=== PATIENT | female | born 1965 | race American Indian/Alaskan Native ===

== ENCOUNTER 2017-09-29 21:10 | Emergency (ER) | payer SELFPAY ==
[2017-09-29] MEDS ORDERED: DUONEB *Not for PRN Use IH ONE (23:04)
--- NOTE | 2017-09-29 23:42 | XRay Report ---
FINAL REPORT PROCEDURE: XR CHEST 1V AP TECHNIQUE: A portable AP chest radiograph was obtained at 09/30/2017 03:15 ([facility]) . CPT 22016 HISTORY: Chest pain. COMPARISON: No prior studies are available for comparison. FINDINGS: Heart: Mild cardiomegaly. Mediastinum/Vessels: Mild aortic tortuosity. Lungs/Pleural space: Mild perihilar indistinctness. Bibasilar opacities. Low lung volumes. Bony thorax: Mild degenerative changes of the spine and shoulders. Life support devices: None. IMPRESSION: Mild cardiomegaly. Mild aortic tortuosity. Perihilar indistinctness with bibasilar opacities. Low lung volumes. Findings likely related to bronchovascular crowding/atelectasis, also consider subtle congestive heart failure or pneumonitis.
[2017-09-30 00:21] LABS: Basophils % (Auto) 0.6 % (0.0-1.8); Eosinophils % (Auto) 0.8 % (0.0-4.3); Lymphocytes # (Auto) 1.5 K/mm3 (1.2-5.4); Lymphocytes % (Auto) 47.8 % (13.4-35.0); Mean Corpuscular HGB Conc 33 % (30-34); Mean Corpuscular Hemoglobin 33 pg (28-32); Mean Corpuscular Volume 98 fl (79-97); Monocytes # (Auto) 0.3 K/mm3 (0.0-0.8); Monocytes % (Auto) 9.9 % (0.0-7.3); Red Blood Count 3.96 M/mm3 (3.65-5.03); Red Cell Distribution Width 14.5 % (13.2-15.2)
--- NOTE | 2017-09-30 00:34 | Emergency Department Report ---
ED Chest Pain HPI - General Chief Complaint: Chest Pain Stated Complaint: CHEST PAIN Time Seen by Provider: 09/29/17 22:12 Source: patient, EMS Mode of arrival: Stretcher Limitations: No Limitations - History of Present Illness Initial Comments: Patient says that she was drinking beer earlier today when she developed substernal chest pain that started radiating to her left arm. It is intermittent. Exertional. Has been having wheezing lately. Endorses a Nonproductive cough as well. Denies illicit drug use. No family history of ACS. Said that she drinks 6 beers today. - Related Data Previous Rx's Medication Instructions Recorded Last Taken Type cloNIDine [Catapres] 0.1 mg PO BID #60 tablet 09/28/14 04/16/15 Rx Famotidine [Pepcid] 20 mg PO BID #30 tablet 04/16/15 Unknown Rx Permethrin 5% [Acticin 5% CREAM] 1 applicatio TP ONCE #1 tube 04/16/15 Unknown Rx hydrOXYzine HCL [Atarax] 50 mg PO Q6HR PRN #20 tablet 04/16/15 Unknown Rx Colloidal Oatmeal [Eucerin Eczema 226 gm TP BID #1 cream..g. 05/17/15 Unknown Rx Relief] Diphenhydramine HCl [Benadryl 25 mg PO TID #60 tablet 05/17/15 Unknown Rx Allergy TAB] Prednisone [predniSONE 10 mg 10 mg PO .TAPER #1 tab.ds.pk 05/17/15 Unknown Rx (6-Day Pack, 21 Tabs)] Albuterol Sulfate [Proair 90 mcg IH Q4HR PRN #1 aer.pow.ba 09/30/17 Unknown Rx Respiclick] Azithromycin 250 mg PO DAILY #4 tablet 09/30/17 Unknown Rx predniSONE [Deltasone] 50 mg PO QDAY #4 tab 09/30/17 Unknown Rx Allergies Allergy/AdvReac Type Severity Reaction Status Date / Time Penicillins Allergy Itching Verified 05/17/15 14:12 Heart Score - HEART Score History: Moderately suspicious EKG: Normal Age: 45-65 Risk factors: > 3 risk factors or hx of atherosclerotic disease Troponin: < normal limit HEART Score: 4 ED Review of Systems ROS: Stated complaint: CHEST PAIN Other details as noted in HPI Constitutional: denies: chills, fever Eyes: denies: eye pain, eye discharge, vision change ENT: denies: ear pain, throat pain Respiratory: shortness of breath, SOB with exertion, wheezing. denies: cough Cardiovascular: chest pain. denies: palpitations Endocrine: no symptoms reported Gastrointestinal: denies: abdominal pain, nausea, diarrhea Genitourinary: denies: urgency, dysuria, discharge Musculoskeletal: denies: back pain, joint swelling, arthralgia Skin: denies: rash, lesions Neurological: denies: headache, weakness, paresthesias Psychiatric: denies: anxiety, depression Hematological/Lymphatic: denies: easy bleeding, easy bruising ED Past Medical Hx - Past Medical History Hx Hypertension: Yes (non-compliant with meds) Hx Heart Attack/AMI: No Hx Congestive Heart Failure: No Hx Diabetes: No Hx Arthritis: Yes Hx Psychiatric Treatment: Yes (anxiety, bipolar) Hx Asthma: No Hx COPD: Yes Hx HIV: No - Surgical History Hx Coronary Stent: No Additional Surgical History: 3 c-sections - Social History Smoking Status: Smoker, Current Status Unknown Substance Use Type: Alcohol - Medications Home Medications: Home Medications Medication Instructions Recorded Confirmed Last Taken Type cloNIDine [Catapres] 0.1 mg PO BID #60 tablet 09/28/14 04/16/15 04/16/15 Rx Famotidine [Pepcid] 20 mg PO BID #30 tablet 04/16/15 Unknown Rx Permethrin 5% [Acticin 5% CREAM] 1 applicatio TP ONCE #1 tube 04/16/15 Unknown Rx hydrOXYzine HCL [Atarax] 50 mg PO Q6HR PRN #20 tablet 04/16/15 Unknown Rx Colloidal Oatmeal [Eucerin Eczema 226 gm TP BID #1 cream..g. 05/17/15 Unknown Rx Relief] Diphenhydramine HCl [Benadryl 25 mg PO TID #60 tablet 05/17/15 Unknown Rx Allergy TAB] Prednisone [predniSONE 10 mg 10 mg PO .TAPER #1 tab.ds.pk 05/17/15 Unknown Rx (6-Day Pack, 21 Tabs)] Albuterol Sulfate [Proair 90 mcg IH Q4HR PRN #1 aer.pow.ba 09/30/17 Unknown Rx Respiclick] Azithromycin 250 mg PO DAILY #4 tablet 09/30/17 Unknown Rx predniSONE [Deltasone] 50 mg PO QDAY #4 tab 09/30/17 Unknown Rx ED Physical Exam - General Limitations: No Limitations General appearance: alert, in no apparent distress, other (intoxicated) - Head Head exam: Present: atraumatic, normocephalic - Eye Eye exam: Present: normal appearance - ENT ENT exam: Present: mucous membranes moist - Neck Neck exam: Present: normal inspection - Respiratory Respiratory exam: Present: wheezes, rhonchi, prolonged expiratory. Absent: respiratory distress - Cardiovascular Cardiovascular Exam: Present: regular rate, normal rhythm, JVD. Absent: systolic murmur, diastolic murmur, rubs, gallop - GI/Abdominal GI/Abdominal exam: Present: soft, normal bowel sounds - Extremities Exam Extremities exam: Present: normal inspection, pedal edema - Back Exam Back exam: Present: normal inspection - Neurological Exam Neurological exam: Present: alert, oriented X3 - Psychiatric Psychiatric exam: Present: normal affect, normal mood - Skin Skin exam: Present: warm, dry, intact, normal color. Absent: rash ED Course Vital Signs 09/29/17 09/29/17 09/30/17 21:42 23:20 01:10 Temperature 97.8 F Pulse Rate 82 82 70 Pulse Rate [ Anterior Throughout] Respiratory 18 20 Rate Respiratory Rate [Anterior Throughout] Blood Pressure 103/50 Blood Pressure 109/59 111/66 [Right] O2 Sat by Pulse 96 95 96 Oximetry 09/30/17 09/30/17 01:22 01:39 Temperature Pulse Rate Pulse Rate [ 70 90 Anterior Throughout] Respiratory Rate Respiratory 20 22 Rate [Anterior Throughout] Blood Pressure Blood Pressure [Right] O2 Sat by Pulse Oximetry LISA score - Lisa Score Age > 65: (0) No Aspirin use within the Past 7 Days: (0) No 3 or more CAD Risk Factors: (0) No 2 or more Angina events in past 24 hrs: (0) No Known CAD with more than 50% Stenosis: (0) No Elevated Cardiac Markers: (0) No ST Deviation Greater than 0.5mm: (0) No LISA Score: 0 ED Medical Decision Making - Lab Data Result diagrams: 09/29/17 23:51 09/29/17 23:51 - EKG Data -: EKG Interpreted by Ok EKG shows normal: sinus rhythm, axis, intervals, QRS complexes, ST-T waves Rate: normal - EKG Data Interpretation: no acute changes - Radiology Data Radiology results: report reviewed, image reviewed - Medical Decision Making 52-year-old female with past medical history of COPD, hypertension and presents with chest pain. Patient's symptoms improved before she arrived in the ER. Vitals are stable. Bilateral wheezing and rhonchi heard on presentation. This improved after breathing treatments. Chest x-ray shows concern for possible bibasilar opacities versus interstitial edema. Patient's BNP is negative. No history of CHF. Likely could be an early forming infection. Patient will be started on prednisone and azithromycin. Troponin is negative 1. EKG is nonischemic. Low suspicion for ACS. Patient passed her walk of life. She'll be discharged home with instructions to follow-up with the [facility] for further management and evaluation. - Differential Diagnosis acs, chf vs copd exacerbation, pna, ptx, pe, sepsis Critical care attestation.: If time is entered above; I have spent that time in minutes in the direct care of this critically ill patient, excluding procedure time. ED Disposition Clinical Impression: COPD exacerbation Disposition: DC-01 TO HOME OR SELFCARE Is pt being admited?: No Condition: Stable Instructions: Chronic Obstructive Pulmonary Disease (ED) Prescriptions: Albuterol Sulfate [Proair Respiclick] 90 mcg IH Q4HR PRN #1 aer.pow.ba PRN Reason: Dyspnea Azithromycin 250 mg PO DAILY #4 tablet predniSONE [Deltasone] 50 mg PO QDAY #4 tab Referrals: PRIMARY CARE, [Primary Care Provider] - 3-5 Days
[2017-09-30 00:51] LABS: BUN/Creatinine Ratio 9; Blood Urea Nitrogen 6 mg/dL (7-17); Calcium 8.7 mg/dL (8.4-10.2); Hemolysis Index 6
[2017-09-30 00:59] LABS: Platelet Count 63 K/mm3 (140-440)
[2017-09-30 01:10] VITALS: BP 111/66
[2017-09-30] MEDS ORDERED: PROVENTIL IH ONE ×2 (01:15→01:20)
[2017-09-30] MEDS ORDERED: DUONEB *Not for PRN Use IH ONE (01:15)
[2017-09-30] MEDS ORDERED: ZITHROMAX PO ONE (01:24)
[2017-09-30] MEDS ORDERED: DELTASONE PO ONE (01:24)
== END 2017-09-30 02:10 | disposition home or self-care (01) ==
LOC: ED 21:10
DX: J44.1 Chronic obstructive pulmonary disease with (acute) exacerbation (principal); I10 Essential (primary) hypertension; M19.90 Unspecified osteoarthritis, unspecified site; J44.9 Chronic obstructive pulmonary disease, unspecified; Z88.0 Allergy status to penicillin
CPT/HCPCS: 36415; 71045; 80048; 83880; 84484; 85025; 93005; 93010; 94640; 99285; J7512

== ENCOUNTER 2018-11-03 09:29 | Emergency (ER) | payer MEDICAID ==
[2018-11-03] MEDS ORDERED: NORCO 5/325 PO ONE (09:50)
--- NOTE | 2018-11-03 09:53 | Emergency Department Report ---
ED Extremity Problem HPI - General Chief complaint: Extremity Injury, Lower Stated complaint: LEFT LEG SWOLLEN Time Seen by Provider: 11/03/18 09:43 Source: patient, EMS Mode of arrival: Wheelchair Limitations: No Limitations - History of Present Illness Initial comments: 53-year-old female with a past medical history of arthritis, COPD, hypertension, anxiety, and bipolar disorder presents to the hospital for left leg pain and swelling the past 3 days. Patient denies any fall or injury. Patient complains of a constant burning pain that is at the left foot and distal medial left leg. Pain is constant, worse with palpation and ambulation, no alleviating factors, and rated 10/10 in intensity. Patient complains of chronic intermittent shortness of breath due to COPD. No chest pain or fever reported. Patient denies recent long-distance travel or history of PE/DVT. PMD: none - Related Data Previous Rx's Medication Instructions Recorded Last Taken Type cloNIDine [Catapres] 0.1 mg PO BID #60 tablet 09/28/14 04/16/15 Rx Famotidine [Pepcid] 20 mg PO BID #30 tablet 04/16/15 Unknown Rx Permethrin 5% [Acticin 5% CREAM] 1 applicatio TP ONCE #1 tube 04/16/15 Unknown Rx hydrOXYzine HCL [Atarax] 50 mg PO Q6HR PRN #20 tablet 04/16/15 Unknown Rx Colloidal Oatmeal [Eucerin Eczema 226 gm TP BID #1 cream..g. 05/17/15 Unknown Rx Relief] Diphenhydramine HCl [Benadryl 25 mg PO TID #60 tablet 05/17/15 Unknown Rx Allergy TAB] Prednisone [predniSONE 10 mg 10 mg PO .TAPER #1 tab.ds.pk 05/17/15 Unknown Rx (6-Day Pack, 21 Tabs)] Albuterol Sulfate [Proair 90 mcg IH Q4HR PRN #1 aer.pow.ba 09/30/17 Unknown Rx Respiclick] Azithromycin 250 mg PO DAILY #4 tablet 09/30/17 Unknown Rx predniSONE [Deltasone] 50 mg PO QDAY #4 tab 09/30/17 Unknown Rx HYDROcodone/APAP 5-325 [[place] 1 each PO Q4HR PRN #20 tablet 11/03/18 Unknown Rx 5/325] Sulfamethoxazole/Trimethoprim 1 each PO BID #20 tablet 11/03/18 Unknown Rx [Bactrim DS TAB] Allergies Allergy/AdvReac Type Severity Reaction Status Date / Time Penicillins Allergy Itching Verified 05/17/15 14:12 ED Review of Systems ROS: Stated complaint: LEFT LEG SWOLLEN Other details as noted in HPI Comment: All other systems reviewed and negative ED Past Medical Hx - Past Medical History Previous Medical History?: Yes Hx Hypertension: Yes (non-compliant with meds) Hx Heart Attack/AMI: No Hx Congestive Heart Failure: No Hx Diabetes: No Hx Arthritis: Yes Hx Psychiatric Treatment: Yes (anxiety, bipolar) Hx Asthma: No Hx COPD: Yes Hx HIV: No - Surgical History Past Surgical History?: Yes Hx Coronary Stent: No Additional Surgical History: 3 c-sections - Social History Smoking Status: Never Smoker Substance Use Type: None - Medications Home Medications: Home Medications Medication Instructions Recorded Confirmed Last Taken Type cloNIDine [Catapres] 0.1 mg PO BID #60 tablet 09/28/14 04/16/15 04/16/15 Rx Famotidine [Pepcid] 20 mg PO BID #30 tablet 04/16/15 Unknown Rx Permethrin 5% [Acticin 5% CREAM] 1 applicatio TP ONCE #1 tube 04/16/15 Unknown Rx hydrOXYzine HCL [Atarax] 50 mg PO Q6HR PRN #20 tablet 04/16/15 Unknown Rx Colloidal Oatmeal [Eucerin Eczema 226 gm TP BID #1 cream..g. 05/17/15 Unknown Rx Relief] Diphenhydramine HCl [Benadryl 25 mg PO TID #60 tablet 05/17/15 Unknown Rx Allergy TAB] Prednisone [predniSONE 10 mg 10 mg PO .TAPER #1 tab.ds.pk 05/17/15 Unknown Rx (6-Day Pack, 21 Tabs)] Albuterol Sulfate [Proair 90 mcg IH Q4HR PRN #1 aer.pow.ba 09/30/17 Unknown Rx Respiclick] Azithromycin 250 mg PO DAILY #4 tablet 09/30/17 Unknown Rx predniSONE [Deltasone] 50 mg PO QDAY #4 tab 09/30/17 Unknown Rx HYDROcodone/APAP 5-325 [[place] 1 each PO Q4HR PRN #20 tablet 11/03/18 Unknown Rx 5/325] Sulfamethoxazole/Trimethoprim 1 each PO BID #20 tablet 11/03/18 Unknown Rx [Bactrim DS TAB] ED Physical Exam - General Limitations: No Limitations - Other Other exam information: General: No limitations, patient is alert in no acute distress Head exam: Atraumatic, normocephalic Eyes exam: Normal appearance ENT: Moist mucous membrane, normal oropharynx Neck exam: Normal inspection, full range of motion, no meningismus nontender Respiratory exam: Clear to auscultation bilateral, no wheezes, rales, crackles Cardiovascular: Normal rate and rhythm, normal heart sounds Abdomen: Soft, nondistended, and nontender, with normal bowel sounds, no rebound, or guarding Extremity: Full range of motion, left lower leg greater in size than the right with tenderness, medial left ankle warm and tenderness. No erythema. 2+ DP pulses bilaterally Back: Normal Inspection, full range of motion, no tenderness Neurologic: Alert, oriented x3, cranial nerves intact, no motor or sensory deficit Psychiatric: normal affect, normal mood Skin: Warm, dry, intact ED Course Vital Signs 11/03/18 11/03/18 09:30 10:21 Temperature 98.3 F Pulse Rate 91 H Respiratory 16 18 Rate Blood Pressure 128/74 O2 Sat by Pulse 98 Oximetry ED Medical Decision Making - Lab Data Result diagrams: 11/03/18 09:53 11/03/18 11:29 Lab Results 11/03/18 11/03/18 11/03/18 Range/Units 09:53 09:53 09:53 WBC 11.9 H (4.5-11.0) K/mm3 RBC 3.86 (3.65-5.03) M/mm3 Hgb 11.3 (10.1-14.3) gm/dl Hct 34.4 (30.3-42.9) % MCV 89 (79-97) fl MCH 29 (28-32) pg MCHC 33 (30-34) % RDW 17.4 H (13.2-15.2) % Plt Count 119 L (140-440) K/mm3 Lymph # Curb Setter Add Manual Diff Complete Total Counted 100 Seg Neuts % (Manual) 85.0 H (40.0-70.0) % Band Neutrophils % 0 % Lymphocytes % (Manual) 11.0 L (13.4-35.0) % Reactive Lymphs % (Man) 0 % Monocytes % (Manual) 4.0 (0.0-7.3) % Eosinophils % (Manual) 0 (0.0-4.3) % Basophils % (Manual) 0 (0.0-1.8) % Metamyelocytes % 0 % Myelocytes % 0 % Promyelocytes % 0 % Blast Cells % 0 % Nucleated RBC % Not Reportable Seg Neutrophils # Man 10.1 H (1.8-7.7) K/mm3 Band Neutrophils # 0.0 K/mm3 Lymphocytes # (Manual) 1.3 (1.2-5.4) K/mm3 Abs React Lymphs (Man) 0.0 K/mm3 Monocytes # (Manual) 0.5 (0.0-0.8) K/mm3 Eosinophils # (Manual) 0.0 (0.0-0.4) K/mm3 Basophils # (Manual) 0.0 (0.0-0.1) K/mm3 Metamyelocytes # 0.0 K/mm3 Myelocytes # 0.0 K/mm3 Promyelocytes # 0.0 K/mm3 Blast Cells # 0.0 K/mm3 WBC Morphology Not Reportable Hypersegmented Neuts Not Reportable Hyposegmented Neuts Not Reportable Hypogranular Neuts Not Reportable Smudge Cells Not Reportable Toxic Granulation Not Reportable Toxic Vacuolation Not Reportable Dohle Bodies Not Reportable Pelger-Huet Anomaly Not Reportable Neo Rods Not Reportable Platelet Estimate Consistent w auto Clumped Platelets Not Reportable Plt Clumps, EDTA Not Reportable Large Platelets Not Reportable Giant Platelets Not Reportable Platelet Satelliting Not Reportable Plt Morphology Comment Not Reportable RBC Morphology Not Reportable Dimorphic RBCs Not Reportable Polychromasia Not Reportable Hypochromasia Few Poikilocytosis Not Reportable Anisocytosis 1+ Microcytosis Not Reportable Macrocytosis Not Reportable Spherocytes Not Reportable Pappenheimer Bodies Not Reportable Sickle Cells Not Reportable Target Cells Few Tear Drop Cells Not Reportable Ovalocytes Not Reportable Helmet Cells Not Reportable Pradhan-Platina Bodies Not Reportable Epsom Rings Not Reportable Norbert Cells Not Reportable Bite Cells Not Reportable Crenated Cell Not Reportable Elliptocytes Not Reportable Acanthocytes (Spur) Not Reportable Rouleaux Not Reportable Hemoglobin C Crystals Not Reportable Schistocytes Not Reportable Malaria parasites Not Reportable Rajendra Bodies Not Reportable Hem Pathologist Commnt No PT 18.6 H (12.2-14.9) Sec. INR 1.59 H (0.87-1.13) APTT 39.8 H (24.2-36.6) Sec. Sodium TNR Potassium TNR Chloride TNR Carbon Dioxide TNR Anion Gap TNR BUN TNR Creatinine TNR Estimated GFR TNR BUN/Creatinine Ratio TNR Glucose TNR Calcium TNR 11/03/18 Range/Units 11:29 WBC (4.5-11.0) K/mm3 RBC (3.65-5.03) M/mm3 Hgb (10.1-14.3) gm/dl Hct (30.3-42.9) % MCV (79-97) fl MCH (28-32) pg MCHC (30-34) % RDW (13.2-15.2) % Plt Count (140-440) K/mm3 Lymph # Add Manual Diff Total Counted Seg Neuts % (Manual) (40.0-70.0) % Band Neutrophils % % Lymphocytes % (Manual) (13.4-35.0) % Reactive Lymphs % (Man) % Monocytes % (Manual) (0.0-7.3) % Eosinophils % (Manual) (0.0-4.3) % Basophils % (Manual) (0.0-1.8) % Metamyelocytes % % Myelocytes % % Promyelocytes % % Blast Cells % % Nucleated RBC % Seg Neutrophils # Man (1.8-7.7) K/mm3 Band Neutrophils # K/mm3 Lymphocytes # (Manual) (1.2-5.4) K/mm3 Abs React Lymphs (Man) K/mm3 Monocytes # (Manual) (0.0-0.8) K/mm3 Eosinophils # (Manual) (0.0-0.4) K/mm3 Basophils # (Manual) (0.0-0.1) K/mm3 Metamyelocytes # K/mm3 Myelocytes # K/mm3 Promyelocytes # K/mm3 Blast Cells # K/mm3 WBC Morphology Hypersegmented Neuts Hyposegmented Neuts Hypogranular Neuts Smudge Cells Toxic Granulation Toxic Vacuolation Dohle Bodies Pelger-Huet Anomaly Neo Rods Platelet Estimate Clumped Platelets Plt Clumps, EDTA Large Platelets Giant Platelets Platelet Satelliting Plt Morphology Comment RBC Morphology Dimorphic RBCs Polychromasia Hypochromasia Poikilocytosis Anisocytosis Microcytosis Macrocytosis Spherocytes Pappenheimer Bodies Sickle Cells Target Cells Tear Drop Cells Ovalocytes Helmet Cells Pradhan-Platina Bodies Epsom Rings Norbert Cells Bite Cells Crenated Cell Elliptocytes Acanthocytes (Spur) Rouleaux Hemoglobin C Crystals Schistocytes Malaria parasites Rajendra Bodies Hem Pathologist Commnt PT (12.2-14.9) Sec. INR (0.87-1.13) APTT (24.2-36.6) Sec. Sodium 135 L Potassium 4.4 Chloride 104.8 Carbon Dioxide 19 L Anion Gap 16 BUN 6 L Creatinine 0.7 Estimated GFR > 60 BUN/Creatinine Ratio 9 Glucose 90 Calcium 8.6 - Radiology Data Radiology results: report reviewed Left leg Doppler: No evidence of DVT. Probable left knee Lopez cyst with large central calcification possibly a calcified reticular body. Consider further evaluation with MRI - Medical Decision Making Patient has unilateral leg swelling, warmth, and tenderness greatest at the left medial lower leg. She received by mouth [place] and received clindamycin IV here for cellulitis. Patient is not a diabetic. Will be discharged on Bactrim and pain medication with follow-up advised Mild increased coags noted and outpatient follow-up - Differential Diagnosis gout, cellulitis, DVT Critical Care Time: No Critical care attestation.: If time is entered above; I have spent that time in minutes in the direct care of this critically ill patient, excluding procedure time. ED Disposition Clinical Impression: Left leg cellulitis Lopez's cyst of knee Qualifiers: Laterality: left Qualified Code(s): M71.22 - Synovial cyst of popliteal space [Lopez], left knee Disposition: DC- TO HOME OR SELFCARE Is pt being admited?: No Does the pt Need Aspirin: No Condition: Stable Instructions: Cellulitis (ED), Lopez's Cyst (ED) Additional Instructions: Take the medication as prescribed. Follow up with your doctor or the clinic/doctor provided. Return if symptoms worsen as indicated by your discharge instructions Prescriptions: Sulfamethoxazole/Trimethoprim [Bactrim DS TAB] 1 each PO BID #20 tablet HYDROcodone/APAP 5-325 [[place] 5/325] 1 each PO Q4HR PRN #20 tablet PRN Reason: Pain Referrals: RAJANI MANZANARES DO [Staff Physician] - 2-3 Days KOLE JAIN MD [Staff Physician] - 2-3 Days KRISTINE PITT MD [Staff Physician] - 2-3 Days R[place]ERS [place] MD YAAKOV [Primary Care Provider] - 2-3 Days DANIEL FOSTER MD [Staff Physician] - 7-10 days (orthopedic) Time of Disposition: 13:18
[2018-11-03 10:21] LABS: INR 1.59 (0.87-1.13)
[2018-11-03 10:22] LABS: Partial Thromboplastin Time 39.8 Sec. (24.2-36.6)
[2018-11-03 10:36] LABS: BUN/Creatinine Ratio TNR; Blood Urea Nitrogen TNR mg/dL (7-17); Calcium TNR mg/dL (8.4-10.2)
[2018-11-03 10:37] LABS: Hemolysis Index TNR
[2018-11-03 10:40] LABS: Hematocrit 34.4 % (30.3-42.9); Hemoglobin 11.3 gm/dl (10.1-14.3); Mean Corpuscular HGB Conc 33 % (30-34); Mean Corpuscular Volume 89 fl (79-97); Platelet Count 119 K/mm3 (140-440); Red Blood Count 3.86 M/mm3 (3.65-5.03); Red Cell Distribution Width 17.4 % (13.2-15.2)
[2018-11-03] MEDS ORDERED: CLEOCIN 600 MG/50 mL 600 MG/50 ML BAG IV ONE (11:16)
[2018-11-03 11:36] LABS: Basophils % (Manual) 0 % (0.0-1.8); Eosinophils % (Manual) 0 % (0.0-4.3); Total Cells Counted 100
[2018-11-03 11:37] LABS: Anisocytosis 1+; Hypochromasia Few; Platelet Estimate Consistent w Auto; Target Cells Few
[2018-11-03 12:05] LABS: BUN/Creatinine Ratio 9; Blood Urea Nitrogen 6 mg/dL (7-17); Calcium 8.6 mg/dL (8.4-10.2); Hemolysis Index 53
--- NOTE | 2018-11-03 12:33 | Vascular Lab Report ---
PROCEDURE: VL VENOUS DUPLEX LE LT TECHNIQUE: Grayscale and color and spectral doppler ultrasound imaging of the left lower extremity v enous system was performed. HISTORY: left leg swelling and pain COMPARISONS: None. FINDINGS: There is normal compression and color flow within the left lower extremity venous system. Normal augm entation was seen. No evidence of superficial venous thrombosis. Prominent left inguinal lymph node is likely reactive. A nonspecific cystic area with heterogeneous central echogenic component with pos terior shadowing is seen in the left popliteal fossa measuring 3.2 x 1.5 cm. IMPRESSION: No evidence of deep venous thrombosis. Probable left knee Lopez's cyst with large central calcification possibly representing a calcified ar ticular body. Consider further evaluation with MRI of the left knee. This document is electronically signed by Yelitza Macias., November 03 2018 12:31:41 PM ET
[2018-11-03 13:47] VITALS: BP 146/82
== END 2018-11-03 13:52 | disposition home or self-care (01) ==
LOC: ED 09:29
DX: M71.22 Synovial cyst of popliteal space [Baker], left knee (principal); L03.116 Cellulitis of left lower limb; I10 Essential (primary) hypertension; M19.90 Unspecified osteoarthritis, unspecified site; F31.9 Bipolar disorder, unspecified; J44.9 Chronic obstructive pulmonary disease, unspecified; Z79.899 Other long term (current) drug therapy; Z88.0 Allergy status to penicillin
CPT/HCPCS: 36415; 80048; 85007; 85025; 85610; 85730; 96365

== ENCOUNTER 2018-11-29 14:23 | Emergency (ER) | payer MEDICAID ==
--- NOTE | 2018-11-29 14:40 | Event Note ---
ED Screening Note Date of service: 11/29/18 Time: 14:39 ED Screening Note: This is a 53 y.o. F. that presents to the ER with swelling and abscess to LLE x 1 month. PMH cirrhosis and HTN This initial assessment/diagnostic orders/clinical plan/treatment(s) is/are subject to change based on patients health status, clinical progression and re- assessment by fellow clinical providers in the ED. Further treatment and workup at subsequent clinical providers discretion. Patient/guardian urged not to elope from the ED as their condition may be serious if not clinically assessed and managed. Initial orders include: Doppler and labs
[2018-11-29 14:41] VITALS: BP 153/91
[2018-11-29 15:01] LABS: Hematocrit 36.2 % (30.3-42.9); Hemoglobin 12.3 gm/dl (10.1-14.3); Mean Corpuscular HGB Conc 34 % (30-34); Mean Corpuscular Volume 89 fl (79-97); Platelet Count 109 K/mm3 (140-440); Red Blood Count 4.08 M/mm3 (3.65-5.03); Red Cell Distribution Width 18.8 % (13.2-15.2)
[2018-11-29 15:13] LABS: BUN/Creatinine Ratio 8; Blood Urea Nitrogen 6 mg/dL (7-17); Calcium 8.6 mg/dL (8.4-10.2); Hemolysis Index 40
[2018-11-29 15:14] LABS: INR 1.53 (0.87-1.13)
[2018-11-29 15:15] LABS: Partial Thromboplastin Time 39.6 Sec. (24.2-36.6)
--- NOTE | 2018-11-29 15:38 | Vascular Lab Report ---
DUPLEX VENOUS DOPPLER LEFT LOWER EXTREMITY INDICATION: Left lower extremity pain and swelling for 2 weeks TECHNIQUE: Duplex doppler imaging was performed through the veins of the left lower extremity using v enous compression and other maneuvers. COMPARISON: None available. FINDINGS: Common Femoral vein: Negative. Superficial Femoral vein: Negative. Popliteal vein: Negative. Calf veins: Negative. Additional findings: Benign-appearing mildly enlarged lymph nodes are seen in the left inguinal area. Edema is seen in the left calf soft tissues. A 4.8 cm elongated complex popliteal cyst is noted. IMPRESSION: No evidence of deep venous thrombosis. Popliteal cyst. Signer Name: Logan Liz MD Signed: 11/29/2018 3:34 PM Workstation Name: [id number]
--- NOTE | 2018-11-29 18:51 | XRay Report ---
CHEST 2 VIEWS INDICATION / CLINICAL INFORMATION: cp. COMPARISON: None available. FINDINGS: The PA view is poorly centered in the right costophrenic angle is not entirely included on the field of view. SUPPORT DEVICES: None. HEART / MEDIASTINUM: Cardiac silhouette is mildly enlarged with normal pulmonary vascularity. LUNGS / PLEURA: No significant pulmonary or pleural abnormality. No pneumothorax. ADDITIONAL FINDINGS: No significant additional findings. IMPRESSION: 1. Cardiomegaly without CHF Signer Name: Sid Toscano MD Signed: 11/29/2018 6:46 PM Workstation Name: [id number]
[2018-11-29 19:11] LABS: Bacteria,Urine 1+ /HPF (Negative); Bilirubin,Urine NEG (Negative); Blood,Urine MOD (Negative); Color,Urine Amber (Yellow); Protein,Urine <15 mg/dL mg/dL (Negative)
[2018-11-29 19:40] LABS: Albumin 2.8 g/dL (3.9-5)
[2018-11-29] MEDS ORDERED: ROCEPHIN IM ONE (19:59)
[2018-11-29] MEDS ORDERED: XYLOCAINE 1% MPF 5 mL INFILTRATI ONE (19:59)
--- NOTE | 2018-11-29 19:59 | Emergency Department Report ---
HPI - General Chief Complaint: Extremity Injury, Lower Time Seen by Provider: 11/29/18 14:39 - HPI HPI: Patient is a 53-year-old -Citizen Of [place] female who looks much older than stated age. Patient comes to the ER complaining of left lower extremity swe lling. She states that the swelling has gotten worse since she was bit by a spider several months ago. She denies any chest pain. She states that she does have intermittent shortness of breath but this is nothing new. Patient has been seen and evaluated for a bite in the past. However, on further examination the patient was noted to have a history of cirrhosis of the liver diagnosed in February 2018. She also has a history of hepatitis C per her sister. She was last evaluated at [place] in February. She has an appointment for January 23. Patient states that she had a remote history of hypertension but is non- currently hypertensive and not on anti-hypertensive medications. The only me dication she takes daily is Benadryl and Atarax. PSH none no cig/thc last etoh 02/24 mom dec pna dad dec liver disease ED Past Medical Hx - Past Medical History Hx Hypertension: Yes (non-compliant with meds) Hx Heart Attack/AMI: No Hx Congestive Heart Failure: No Hx Diabetes: No Hx Arthritis: Yes Hx Psychiatric Treatment: Yes (anxiety, bipolar) Hx Asthma: No Hx COPD: Yes Hx HIV: No - Surgical History Hx Coronary Stent: No Additional Surgical History: 3 c-sections - Social History Smoking Status: Never Smoker Substance Use Type: None - Medications Home Medications: Home Medications Medication Instructions Recorded Confirmed Last Taken Type hydrOXYzine HCL [Atarax] 50 mg PO Q6HR PRN #20 tablet 04/16/15 Unknown Rx Diphenhydramine HCl [Benadryl 25 mg PO TID #60 tablet 05/17/15 Unknown Rx Allergy TAB] cephALEXin [Keflex] 500 mg PO Q12HR #20 cap 11/29/18 Unknown Rx ED Review of Systems ROS: Stated complaint: SPIDER BITE Other details as noted in HPI Comment: All other systems reviewed and negative Physical Exam - Physical Exam Vital Signs: Vital Signs 11/29/18 14:39 Temperature 98.3 F Pulse Rate 90 Respiratory 19 Rate Blood Pressure 153/91 [Left] O2 Sat by Pulse 98 Oximetry Physical Exam: alert and oriented obese no focal def conjunctiva red bilateral abd snt but limited by body habitus no cva tenderness lungs cta s1s2 ble edema left more than right. dp/pt plus 2 bianca. wound to lle medial area-pt states old bite. with surrounding erythema ED Course Vital Signs 11/29/18 14:39 Temperature 98.3 F Pulse Rate 90 Respiratory 19 Rate Blood Pressure 153/91 [Left] O2 Sat by Pulse 98 Oximetry ED Medical Decision Making - Lab Data Result diagrams: 11/29/18 14:49 11/29/18 14:49 - EKG Data EKG shows normal: sinus rhythm Rate: normal - EKG Data When compared to previous EKG there are: no significant change Interpretation: no acute changes - Radiology Data Radiology results: report reviewed, image reviewed - Medical Decision Making Lab Results 11/29/18 11/29/18 11/29/18 Range/Units 14:49 14:49 14:49 WBC 8.4 (4.5-11.0) K/mm3 RBC 4.08 (3.65-5.03) M/mm3 Hgb 12.3 (10.1-14.3) gm/dl Hct 36.2 (30.3-42.9) % MCV 89 (79-97) fl MCH 30 (28-32) pg MCHC 34 (30-34) % RDW 18.8 H (13.2-15.2) % Plt Count 109 L (140-440) K/mm3 PT 18.0 H (12.2-14.9) Sec. INR 1.53 H (0.87-1.13) APTT 39.6 H (24.2-36.6) Sec. Sodium 133 L (137-145) mmol/L Potassium 4.0 (3.6-5.0) mmol/L Chloride 103.3 (98-107) mmol/L Carbon Dioxide 18 L (22-30) mmol/L Anion Gap 16 mmol/L BUN 6 L (7-17) mg/dL Creatinine 0.8 (0.7-1.2) mg/dL Estimated GFR > 60 ml/min BUN/Creatinine Ratio 8 % Glucose 141 H (65-100) mg/dL Calcium 8.6 (8.4-10.2) mg/dL Total Bilirubin (0.1-1.2) mg/dL Direct Bilirubin (0-0.2) mg/dL Indirect Bilirubin mg/dL AST (5-40) units/L ALT (7-56) units/L Alkaline Phosphatase (35-129) units/L Ammonia (25-60) umol/L Troponin T (0.00-0.029) ng/mL NT-Pro-B Natriuret Pep (0-900) pg/mL Total Protein (6.3-8.2) g/dL Albumin (3.9-5) g/dL Albumin/Globulin Ratio % Urine Color (Yellow) Urine Turbidity (Clear) Urine pH (5.0-7.0) Ur Specific [place] (1.003-1.030) Urine Protein (Negative) mg/dL Urine Glucose (UA) (Negative) mg/dL Urine Ketones (Negative) mg/dL Urine Blood (Negative) Urine Nitrite (Negative) Urine Bilirubin (Negative) Urine Urobilinogen (<2.0) mg/dL Ur Leukocyte Esterase (Negative) Urine WBC (Auto) (0.0-6.0) /HPF Urine RBC (Auto) (0.0-6.0) /HPF U Epithel Cells (Auto) (0-13.0) /HPF Urine Bacteria (Auto) (Negative) /HPF 11/29/18 11/29/18 11/29/18 Range/Units 18:32 18:33 18:33 WBC (4.5-11.0) K/mm3 RBC (3.65-5.03) M/mm3 Hgb (10.1-14.3) gm/dl Hct (30.3-42.9) % MCV (79-97) fl MCH (28-32) pg MCHC (30-34) % RDW (13.2-15.2) % Plt Count (140-440) K/mm3 PT (12.2-14.9) Sec. INR (0.87-1.13) APTT (24.2-36.6) Sec. Sodium (137-145) mmol/L Potassium (3.6-5.0) mmol/L Chloride (98-107) mmol/L Carbon Dioxide (22-30) mmol/L Anion Gap mmol/L BUN (7-17) mg/dL Creatinine (0.7-1.2) mg/dL Estimated GFR ml/min BUN/Creatinine Ratio % Glucose (65-100) mg/dL Calcium (8.4-10.2) mg/dL Total Bilirubin 2.70 H (0.1-1.2) mg/dL Direct Bilirubin 1.0 H (0-0.2) mg/dL Indirect Bilirubin 1.7 mg/dL AST 59 H (5-40) units/L ALT 35 (7-56) units/L Alkaline Phosphatase 216 H (35-129) units/L Ammonia (25-60) umol/L Troponin T < 0.010 (0.00-0.029) ng/mL NT-Pro-B Natriuret Pep 51.61 (0-900) pg/mL Total Protein 8.6 H (6.3-8.2) g/dL Albumin 2.8 L (3.9-5) g/dL Albumin/Globulin Ratio 0.5 % Urine Color Carla (Yellow) Urine Turbidity Slightly-cloudy (Clear) Urine pH 6.0 (5.0-7.0) Ur Specific [place] 1.017 (1.003-1.030) Urine Protein <15 mg/dl (Negative) mg/dL Urine Glucose (UA) Neg (Negative) mg/dL Urine Ketones Neg (Negative) mg/dL Urine Blood Mod (Negative) Urine Nitrite Neg (Negative) Urine Bilirubin Neg (Negative) Urine Urobilinogen 4.0 (<2.0) mg/dL Ur Leukocyte Esterase Lg (Negative) Urine WBC (Auto) 32.0 H (0.0-6.0) /HPF Urine RBC (Auto) 21.0 (0.0-6.0) /HPF U Epithel Cells (Auto) 19.0 H (0-13.0) /HPF Urine Bacteria (Auto) 1+ (Negative) /HPF // Range/Units 18:43 WBC (4.5-11.0) K/mm3 RBC (3.65-5.03) M/mm3 Hgb (10.1-14.3) gm/dl Hct (30.3-42.9) % MCV (79-97) fl MCH (28-32) pg MCHC (30-34) % RDW (13.2-15.2) % Plt Count (140-440) K/mm3 PT (12.2-14.9) Sec. INR (0.87-1.13) APTT (24.2-36.6) Sec. Sodium (137-145) mmol/L Potassium (3.6-5.0) mmol/L Chloride (98-107) mmol/L Carbon Dioxide (22-30) mmol/L Anion Gap mmol/L BUN (7-17) mg/dL Creatinine (0.7-1.2) mg/dL Estimated GFR ml/min BUN/Creatinine Ratio % Glucose (65-100) mg/dL Calcium (8.4-10.2) mg/dL Total Bilirubin (0.1-1.2) mg/dL Direct Bilirubin (0-0.2) mg/dL Indirect Bilirubin mg/dL AST (5-40) units/L ALT (7-56) units/L Alkaline Phosphatase (35-129) units/L Ammonia 60.0 (25-60) umol/L Troponin T (0.00-0.029) ng/mL NT-Pro-B Natriuret Pep (0-900) pg/mL Total Protein (6.3-8.2) g/dL Albumin (3.9-5) g/dL Albumin/Globulin Ratio % Urine Color (Yellow) Urine Turbidity (Clear) Urine pH (5.0-7.0) Ur Specific Duncan (1.003-1.030) Urine Protein (Negative) mg/dL Urine Glucose (UA) (Negative) mg/dL Urine Ketones (Negative) mg/dL Urine Blood (Negative) Urine Nitrite (Negative) Urine Bilirubin (Negative) Urine Urobilinogen (<2.0) mg/dL Ur Leukocyte Esterase (Negative) Urine WBC (Auto) (0.0-6.0) /HPF Urine RBC (Auto) (0.0-6.0) /HPF U Epithel Cells (Auto) (0-13.0) /HPF Urine Bacteria (Auto) (Negative) /HPF Vital Signs 11/29/18 14:39 Temperature 98.3 F Pulse Rate 90 Respiratory 19 Rate Blood Pressure 153/91 [Left] O2 Sat by Pulse 98 Oximetry labs noted per pt and her sister her labs are better today than in 02-24. us is neg xray noted 12 lead noted pt medicated in ER p discussion with pharmacist about best antibiotic to use. long discussion with pt and her sister. They will call [facility] in AM and see if her appnt can get moved up. pt educated on her disease. dc home with sister and detailed follow up instructions. - Differential Diagnosis ro chf; liver failure; dvt; cellulitis Critical care attestation.: If time is entered above; I have spent that time in minutes in the direct care of this critically ill patient, excluding procedure time. ED Disposition Clinical Impression: Cellulitis, Liver dysfunction, Cirrhosis of liver, UTI (urinary tract infection) Disposition: DC-01 TO HOME OR SELFCARE Is pt being admited?: No Does the pt Need Aspirin: No Condition: Stable Instructions: Cirrhosis (ED), Cellulitis (ED) Additional Instructions: FOLLOW UP WITH [facility] IN AM WE DISCUSSED MEDS ORDERED TODAY NO TYLENOL KEEP LEG ELEVATED NOTE ULTRASOUND OF LEG NEG FOR DVT Prescriptions: cephALEXin [Keflex] 500 mg PO Q12HR #20 cap Referrals: BARBARA MARS MD [Staff Physician] - 3-5 Days Time of Disposition: 20:03
== END 2018-11-29 20:45 | disposition home or self-care (01) ==
LOC: ED 14:23
DX: L03.116 Cellulitis of left lower limb (principal); N39.0 Urinary tract infection, site not specified; K74.60 Unspecified cirrhosis of liver; I10 Essential (primary) hypertension; M19.90 Unspecified osteoarthritis, unspecified site; F41.9 Anxiety disorder, unspecified; F31.9 Bipolar disorder, unspecified; J44.9 Chronic obstructive pulmonary disease, unspecified; Z98.890 Other specified postprocedural states; Z79.899 Other long term (current) drug therapy; Z88.0 Allergy status to penicillin
CPT/HCPCS: 36415; 71046; 80048; 80076; 81001; 82140; 82247; 82248; 83880; 84484; 85027; 85610; 85730; 87086; 93971; 96372; 99284; J0696

== ENCOUNTER 2018-12-13 10:43 | Outpatient (CLI) | payer MEDICAID ==
[2018-12-13] MEDS ORDERED: XYLOCAINE TOPICAL 4% TP ONE (11:30)
== END 2018-12-13 10:44 | disposition home or self-care (01) ==
LOC: WOUND 10:43
PROVIDERS: ATTEND Surgery
DX: I87.312 Chronic venous hypertension (idiopathic) with ulcer of left lower extremity (principal); L97.822 Non-pressure chronic ulcer of other part of left lower leg with fat layer exposed; F41.9 Anxiety disorder, unspecified; Z87.891 Personal history of nicotine dependence
CPT/HCPCS: 11042; G0463; 99215

== ENCOUNTER 2018-12-21 09:02 | Outpatient (CLI) | payer MEDICAID | END 2018-12-21 09:03 | disposition home or self-care (01) | LOC: WOUND 09:02 | PROVIDERS: ATTEND Surgery | DX: I87.312 Chronic venous hypertension (idiopathic) with ulcer of left lower extremity (principal); L97.822 Non-pressure chronic ulcer of other part of left lower leg with fat layer exposed; I87.8 Other specified disorders of veins; F41.9 Anxiety disorder, unspecified; Z87.891 Personal history of nicotine dependence ==

== ENCOUNTER 2019-02-28 10:05 | Outpatient (CLI) | payer MEDICAID ==
[2019-02-28] MEDS ORDERED: XYLOCAINE TOPICAL 4% TP ONE (10:30)
== END 2019-02-28 10:06 | disposition home or self-care (01) ==
LOC: WOUND 10:05
PROVIDERS: ATTEND Surgery
DX: I87.312 Chronic venous hypertension (idiopathic) with ulcer of left lower extremity (principal); L97.822 Non-pressure chronic ulcer of other part of left lower leg with fat layer exposed; I87.8 Other specified disorders of veins; F41.9 Anxiety disorder, unspecified; Z87.891 Personal history of nicotine dependence

== ENCOUNTER 2019-03-16 09:49 | Outpatient (CLI) | payer MEDICAID ==
[2019-03-16] MEDS ORDERED: LIDOCAINE (4%) 40 MG/ML TOPICAL SOLN 50 ML BOTTLE TP ONE (16:15)
== END 2019-03-16 09:50 | disposition home or self-care (01) ==
LOC: WOUND 09:49
PROVIDERS: ATTEND Surgery
DX: I87.312 Chronic venous hypertension (idiopathic) with ulcer of left lower extremity (principal); L97.822 Non-pressure chronic ulcer of other part of left lower leg with fat layer exposed; I87.8 Other specified disorders of veins; F41.9 Anxiety disorder, unspecified; Z87.891 Personal history of nicotine dependence

== ENCOUNTER 2019-05-19 09:46 | Emergency (ER) | payer MEDICAID ==
--- NOTE | 2019-05-19 10:39 | Emergency Department Report ---
<AVANIDHRUV A - Last Filed: 05/19/19 15:36> ED Abdominal Pain HPI - General Chief Complaint: Back Pain/Injury Stated Complaint: BACK PAIN/BODY PAIN Time Seen by Provider: 05/19/19 10:27 Source: patient Mode of arrival: Ambulatory Limitations: No Limitations - History of Present Illness Initial Comments: 53 yo obese female comes to ER with RUQ pain radiating to r shoulder. Worse with eating. No n/v/d. Pt has a/c abd pain but she "wants to make sure her liver is ok given her disease." no chest pain no sob pt states her abd is its normal "fat size" she also states her swelling of legs is "less than usual" pt states she takes laxative for her liver- I assume lactulose normal bm today no bleeding pt is alert and oriented x 4 PMH cirrhosis of liver- followed at [facility], [place] obese PSH csec LMP 3 m ago; menopausal no cig/drugs/etoh lives with daughter MD Complaint: abdominal pain -: Gradual, days(s) Location: RUQ Radiation: other Severity: mild Worsens With: nothing Associated Symptoms: denies other symptoms. denies: nausea, vomiting, diarrhea, fever, chills, constipation, dysuria, hematemesis, hematochezia, melena, hematuria, anorexia, syncope - Related Data LMP (females 10-50): other Previous Rx's Medication Instructions Recorded Last Taken Type hydrOXYzine HCL [Atarax] 50 mg PO Q6HR PRN #20 tablet 04/16/15 Unknown Rx Diphenhydramine HCl [Benadryl 25 mg PO TID #60 tablet 05/17/15 Unknown Rx Allergy TAB] cephALEXin [Keflex] 500 mg PO Q12HR #20 cap 11/29/18 Unknown Rx Allergies Allergy/AdvReac Type Severity Reaction Status Date / Time Penicillins Allergy Itching Verified 05/17/15 14:12 ED Review of Systems Comment: All other systems reviewed and negative ED Past Medical Hx - Past Medical History Hx Hypertension: Yes (non-compliant with meds) Hx CVA: No Hx Heart Attack/AMI: No Hx Congestive Heart Failure: No Hx Diabetes: No Hx Deep Vein Thrombosis: No Hx Pulmonary Embolism: No Hx GERD: No Hx Liver Disease: Yes Hx Renal Disease: No Hx of Cancer: No Hx Sickle Cell Disease: No Hx Arthritis: Yes Hx Headaches / Migraines: No Hx Seizures: No Hx Kidney Stones: No Hx Psychiatric Treatment: Yes (anxiety, bipolar) Hx Asthma: No Hx COPD: Yes Hx HIV: No - Surgical History Past Surgical History?: Yes Hx Coronary Stent: No Additional Surgical History: 3 c-sections - Social History Smoking Status: Never Smoker Substance Use Type: None - Medications Home Medications: Home Medications Medication Instructions Recorded Confirmed Last Taken Type hydrOXYzine HCL [Atarax] 50 mg PO Q6HR PRN #20 tablet 04/16/15 Unknown Rx Diphenhydramine HCl [Benadryl 25 mg PO TID #60 tablet 05/17/15 Unknown Rx Allergy TAB] cephALEXin [Keflex] 500 mg PO Q12HR #20 cap 11/29/18 Unknown Rx ED Physical Exam - General Limitations: No Limitations General appearance: alert, in no apparent distress - Head Head exam: Present: atraumatic, normocephalic - Eye Eye exam: Present: normal appearance, scleral icterus - ENT ENT exam: Present: mucous membranes moist - Neck Neck exam: Present: normal inspection - Respiratory Respiratory exam: Present: normal lung sounds bilaterally. Absent: respiratory distress - Cardiovascular Cardiovascular Exam: Present: regular rate, normal rhythm. Absent: systolic murmur, diastolic murmur, rubs, gallop - GI/Abdominal GI/Abdominal exam: Present: soft, normal bowel sounds - Rectal Rectal exam: Present: deferred - Extremities Exam Extremities exam: Present: normal inspection - Back Exam Back exam: Present: normal inspection - Neurological Exam Neurological exam: Present: alert, oriented X3 - Psychiatric Psychiatric exam: Present: normal affect, normal mood - Skin Skin exam: Present: warm, dry, intact. Absent: rash ED Medical Decision Making - Lab Data Result diagrams: 05/19/19 10:53 05/19/19 10:53 - Radiology Data Radiology results: report reviewed, image reviewed - Medical Decision Making Labs 05/19/19 05/19/19 05/19/19 10:24 10:53 10:53 WBC 4.4 L RBC 4.21 Hgb 12.2 Hct 36.6 MCV 87 MCH 29 MCHC 33 RDW 15.8 H Plt Count 129 L Lymph % (Auto) 47.1 H Douglas % (Auto) 10.4 H Eos % (Auto) 2.3 Baso % (Auto) 2.1 H Lymph # 2.1 Douglas # 0.5 Eos # 0.1 Baso # 0.1 Seg Neutrophils % 38.1 L Seg Neutrophils # 1.7 L PT INR Sodium 135 L Potassium 4.6 Chloride 102.4 Carbon Dioxide 17 L Anion Gap 20 BUN 8 Creatinine 0.9 Estimated GFR > 60 BUN/Creatinine Ratio 9 Glucose 108 H Calcium 9.0 Total Bilirubin 1.20 AST 51 H ALT 27 Alkaline Phosphatase 105 Total Protein 8.1 Albumin 3.1 L Albumin/Globulin Ratio 0.6 Lipase 23 HCG, Qual Urine Color Straw Urine Turbidity Clear Urine pH 7.0 Ur Specific [place] 1.004 Urine Protein <15 mg/dl Urine Glucose (UA) Neg Urine Ketones Neg Urine Blood Sm Urine Nitrite Neg Urine Bilirubin Neg Urine Urobilinogen < 2.0 Ur Leukocyte Esterase Neg Urine WBC (Auto) < 1.0 Urine RBC (Auto) 3.0 U Epithel Cells (Auto) 2.0 Urine Bacteria (Auto) 1+ Urine Mucus Few 05/19/19 05/19/19 05/19/19 10:53 10:53 10:53 WBC RBC Hgb Hct MCV MCH MCHC RDW Plt Count Lymph % (Auto) Douglas % (Auto) Eos % (Auto) Baso % (Auto) Lymph # Douglas # Eos # Baso # Seg Neutrophils % Seg Neutrophils # PT 16.5 H INR 1.31 H Sodium Potassium Chloride Carbon Dioxide Anion Gap BUN Creatinine Estimated GFR BUN/Creatinine Ratio Glucose Calcium Total Bilirubin AST ALT Alkaline Phosphatase Total Protein Albumin Albumin/Globulin Ratio Lipase 22 HCG, Qual Negative Urine Color Urine Turbidity Urine pH Ur Specific [place] Urine Protein Urine Glucose (UA) Urine Ketones Urine Blood Urine Nitrite Urine Bilirubin Urine Urobilinogen Ur Leukocyte Esterase Urine WBC (Auto) Urine RBC (Auto) U Epithel Cells (Auto) Urine Bacteria (Auto) Urine Mucus Vital Signs 05/19/19 05/19/19 05/19/19 09:50 11:34 11:50 Temperature 98.3 F Pulse Rate 71 84 80 Respiratory 20 16 16 Rate Blood Pressure 135/81 Blood Pressure 140/84 140/84 [Left] O2 Sat by Pulse 98 96 98 Oximetry PLT 126, higher than in past visits tbili stable inr stable CT noted VSS no fever/non toxic/taking po/ambulatory Pt has a scheduled appnt with GI that treats her at [facility] [place]. dc home with dc plan of care. - Differential Diagnosis ro choley/pancreatitis/liver failure ED Disposition Clinical Impression: Abdominal pain Qualifiers: Abdominal location: unspecified location Qualified Code(s): R10.9 - Unspecified abdominal pain Disposition: DC-01 TO HOME OR SELFCARE Is pt being admited?: No Does the pt Need Aspirin: No Condition: Stable Instructions: Cirrhosis (ED) Additional Instructions: DIET TOLERATED MEDS PER ROUTINE FOLLOW UP WITH [facility] SCHEDULED LET THEM KNOW YOU HAVE BEEN SEEN HERE TODAY ACTIVITY TOLERATED Referrals: KRISTINE PITT MD [Staff Physician] - 3-5 Days Time of Disposition: 15:05 <JOEY MAYERS P - Last Filed: 05/20/19 13:30> ED Review of Systems ROS: Stated complaint: BACK PAIN/BODY PAIN Other details as noted in HPI ED Course Vital Signs 05/19/19 05/19/19 05/19/19 09:50 11:34 11:50 Temperature 98.3 F Pulse Rate 71 84 80 Respiratory 20 16 16 Rate Blood Pressure 135/81 Blood Pressure 140/84 140/84 [Left] O2 Sat by Pulse 98 96 98 Oximetry ED Medical Decision Making - Lab Data Result diagrams: 05/19/19 10:53 05/19/19 10:53 - Medical Decision Making Attestation: Available for consultation Critical care attestation.: If time is entered above; I have spent that time in minutes in the direct care of this critically ill patient, excluding procedure time. ED Disposition Is pt being admited?: No
[2019-05-19 11:03] LABS: Bacteria,Urine 1+ /HPF (Negative); Bilirubin,Urine NEG (Negative); Blood,Urine SM (Negative); Color,Urine Straw (Yellow); Mucus,Urine FEW /HPF; Protein,Urine <15 mg/dL mg/dL (Negative); Urobilinogen,Urine < 2.0 mg/dL (<2.0); WBC,Urine < 1.0 /HPF (0.0-6.0)
[2019-05-19 11:23] LABS: Basophils # (Auto) 0.1 K/mm3 (0.0-0.1); Basophils % (Auto) 2.1 % (0.0-1.8); Eosinophils # (Auto) 0.1 K/mm3 (0.0-0.4); Eosinophils % (Auto) 2.3 % (0.0-4.3); Hematocrit 36.6 % (30.3-42.9); Hemoglobin 12.2 gm/dl (10.1-14.3); Lymphocytes # (Auto) 2.1 K/mm3 (1.2-5.4); Lymphocytes % (Auto) 47.1 % (13.4-35.0); Mean Corpuscular HGB Conc 33 % (30-34); Mean Corpuscular Volume 87 fl (79-97); Monocytes # (Auto) 0.5 K/mm3 (0.0-0.8); Monocytes % (Auto) 10.4 % (0.0-7.3); Platelet Count 129 K/mm3 (140-440); Red Blood Count 4.21 M/mm3 (3.65-5.03); Red Cell Distribution Width 15.8 % (13.2-15.2)
[2019-05-19 11:34] LABS: INR 1.31 (0.87-1.13)
[2019-05-19 13:01] LABS: Alanine Aminotransferase 27 units/L (7-56); Albumin 3.1 g/dL (3.9-5); BUN/Creatinine Ratio 9; Blood Urea Nitrogen 8 mg/dL (7-17); Hemolysis Index 36
[2019-05-19 14:43] VITALS: BP 140/84
--- NOTE | 2019-05-19 14:52 | Cat Scan Report ---
CT abdomen pelvis w con INDICATION: ruq abd pain. TECHNIQUE: All CT scans at this location are performed using the following dose modulation technique: Automated exposure control. CONTRAST: Omnipaque 300, 100 cc IV injection. COMPARISON: None available. CT ABDOMEN: The liver contour is mildly irregular suggestive of cirrhosis. The spleen is mildly enlar ged measuring 12.6 cm. Remaining parenchymal organs are unremarkable. Adenopathy at the gastrohepatic ligament and lateral aspect of the elliott hepatis is nonspecific. A larger node along the lateral asp ect of the elliott hepatis measures 2.6 x 1.9 cm (series 3, image 147). Negative for abdominal mass, fl uid or inflammation. The bowel is not dilated or thickened. A moderate size fat-containing ventral hernia is seen in the midline above the umbilicus. CT PELVIS: Negative for mass, fluid or inflammation. IMPRESSION: 1. Suspected cirrhosis with associated splenomegaly. 2. Nonspecific adenopathy. 3. Negative for obstruction or localized inflammation. 4. Moderate size fat-containing ventral hernia. Signer Name: Sandoval Ramos MD Signed: 05/19/2019 2:48 PM Workstation Name: [id number]
[2019-05-19] MEDS ORDERED: ACETAMINOPHEN 325 MG TAB PO ONE (15:01)
== END 2019-05-19 15:32 | disposition home or self-care (01) ==
LOC: ED 09:46
DX: R10.11 Right upper quadrant pain (principal); I10 Essential (primary) hypertension; M19.90 Unspecified osteoarthritis, unspecified site; F41.9 Anxiety disorder, unspecified; J44.1 Chronic obstructive pulmonary disease with (acute) exacerbation; Z98.890 Other specified postprocedural states; Z79.899 Other long term (current) drug therapy; Z88.0 Allergy status to penicillin
CPT/HCPCS: 36415; 74177; 80053; 81001; 83690; 84703; 85025; 85610; 93005; 93010; 99284; Q9967